=== PATIENT | female | born 1930 | race Caucasian/White ===

== ENCOUNTER 2017-11-20 13:45 | Inpatient (IN) | payer MEDICARE ==
--- NOTE | 2017-11-20 14:32 | EDM.PDOC ---
ED HPI GENERAL MEDICAL PROBLEM - General Chief Complaint: Trauma Stated Complaint: Fall Time Seen by Provider: 11/20/17 14:22 Source of Information: Reports: Patient, EMS, EMS Notes Reviewed, Other ( Neighbor) History Limitations: Reports: No Limitations - History of Present Illness INITIAL COMMENTS - FREE TEXT/NARRATIVE: Patient is 87-year-old female who presents to the emergency department via EMS. Patient was found on floor of home by a neighbor who was contacted by patient' s son because they have not been able to contact pt in several days. Neighbor states that when she entered the apartment that the patient was lying on the bathroom floor. She noticed that the patient's pill bottle was on the counter and Friday through Friday pills were not taken. Neighbor contacted 911. Patient states that she accidentally tripped and fell on Friday. She has pain in her right elbow and left hip. Patient also said she struck the back of head and has some neck discomfort. Patient remained on floor after the fall and did not eat or drink during this period. Scenario questioned by EMS because patient was found on the floor and did not have a bowel movement nor did she urinate herself. At this time, patient denies chest pain, shortness of breath, dizziness, blurry vision, headache, abdominal pain, nausea or vomiting. Onset: Unknown/Unsure Onset Date: 11/17/17 Duration: Day(s): Location: Reports: Head, Neck, Upper Extremity, Right, Lower Extremity, Left Quality: Reports: Ache Severity: Mild Improves with: Reports: None Worsens with: Reports: Movement Context: Reports: Trauma Associated Symptoms: Reports: No Other Symptoms - Related Data Allergies Allergy/AdvReac Type Severity Reaction Status Date / Time aspirin Allergy Cannot Verified 11/20/17 14:28 Remember Penicillins Allergy Cannot Verified 11/20/17 14:28 Remember salicylates Allergy Cannot Verified 11/20/17 14:28 Remember Home Meds: Home Meds Ezetimibe 10 mg PO BEDTIME 11/20/17 [History] FLUoxetine HCl [Fluoxetine] 20 mg PO DAILY 11/20/17 [History] OLANZapine [Olanzapine] 5 mg PO DAILY 11/20/17 [History] QUEtiapine Fumarate [Quetiapine Fumarate] 200 mg PO BEDTIME 11/20/17 [History] Simvastatin [Zocor] 40 mg PO BEDTIME 11/20/17 [History] Valsartan 320 mg PO DAILY 11/20/17 [History] Review of Systems - Review of Systems Review Of Systems: ROS reveals no pertinent complaints other than HPI. Constitutional: Reports: Weakness Eyes: Reports: No Symptoms Ears: Reports: No Symptoms Nose: Reports: No Symptoms Mouth/Throat: Reports: No Symptoms Respiratory: Reports: No Symptoms Cardiovascular: Reports: No Symptoms GI/Abdominal: Reports: No Symptoms Genitourinary: Reports: No Symptoms Musculoskeletal: Reports: Neck Pain, Arm Pain, Leg Pain, Muscle Stiffness Skin: Reports: Bruising Neurological: Reports: Confusion Psychiatric: Reports: No Symptoms ED EXAM, GENERAL - Physical Exam Exam: See Below Exam Limited By: No Limitations General Appearance: Alert, No Apparent Distress, Lethargic Eye Exam: Bilateral Eye: Normal Inspection Nose: Normal Inspection, No Blood Throat/Mouth: Normal Inspection, Normal Oropharynx, No Airway Compromise Head: Atraumatic, Normocephalic Neck: Tender Lateral Respiratory/Chest: No Respiratory Distress, Lungs Clear, Normal Breath Sounds, No Accessory Muscle Use, Chest Non-Tender Cardiovascular: Regular Rate, Rhythm, No Murmur GI/Abdominal: Normal Bowel Sounds, Soft, Non-Tender, No Organomegaly, No Distention, No Abnormal Bruit, No Mass, Pelvis Stable Back Exam: Normal Inspection. No: CVA Tenderness (L), CVA Tenderness (R) Extremities: Arm Pain (Right posterior elbow), Leg Pain (Left hip) Neurological: Alert, Slow to Respond Psychiatric: Normal Affect, Normal Mood Skin Exam: Warm, Dry, Intact, No Rash, Ecchymosis Course - Orders/Labs/Meds Orders: Active Orders 24 hr Category Date Time Status Cervical Spine Comp wo Cont [MR] Stat Exams 11/20/17 14:02 Ordered Elbow Min 3V Lt [CR] Stat Exams 11/20/17 14:22 Ordered Head wo Cont [CT] Stat Exams 11/20/17 14:02 Ordered Hip Min 2V or 3V w Pelvis Lt [CR] Stat Exams 11/20/17 14:02 Ordered CBC WITH AUTO DIFF [HEME] Stat Lab 11/20/17 14:02 Ordered COMPREHENSIVE METABOLIC PN,CMP [CHEM] Stat Lab 11/20/17 14:02 Ordered CREATINE KINASE,CK [CHEM] Stat Lab 11/20/17 14:02 Ordered UA W/MICROSCOPIC [URIN] Stat Lab 11/20/17 14:02 Ordered - Radiology Interpretation Free Text/Narrative:: CT without contrast of head and cervical spine are negative for acute bleed, fracture or dislocation. Plain films of pelvis, hips, and right elbow negative for fracture or dislocation. - Re-Assessments/Exams Free Text/Narrative Re-Assessment/Exam: 11/20/17 16:24 Patient is afebrile, nontoxic appearing, vital signs stable. Patient isn't complaining of any discomfort. All x-rays and CTs were negative. Patient hydrated with 2 L of normal saline while in the emergency department. Patient will be continued on 125 mL an hour of normal saline for 1 more liter. Patient will be admitted inpatient to [facility] and followed. Patient will be reevaluated for hydration status, electrolyte balance, and renal function. 11/20/17 16:27 Departure - Departure Time of Disposition: 16:27 Disposition: Admitted As Inpatient 67 Condition: Fair Clinical Impression: Non-traumatic rhabdomyolysis, Dehydration, Multiple contusions - Discharge Information Referrals: PCP,None [Primary Care Provider] - Forms: ED Department Discharge - My Orders Last 24 Hours: My Active Orders 11/20/17 14:02 Cervical Spine Comp wo Cont [MR] Stat Head wo Cont [CT] Stat Hip Min 2V or 3V w Pelvis Lt [CR] Stat CBC WITH AUTO DIFF [HEME] Stat COMPREHENSIVE METABOLIC PN,CMP [CHEM] Stat CREATINE KINASE,CK [CHEM] Stat UA W/MICROSCOPIC [URIN] Stat 11/20/17 14:22 Elbow Min 3V Lt [CR] Stat - Assessment/Plan Admission H&P: Please use this note as an admission H&P Last 24 Hours: My Active Orders 11/20/17 14:02 Cervical Spine Comp wo Cont [MR] Stat Head wo Cont [CT] Stat Hip Min 2V or 3V w Pelvis Lt [CR] Stat CBC WITH AUTO DIFF [HEME] Stat COMPREHENSIVE METABOLIC PN,CMP [CHEM] Stat CREATINE KINASE,CK [CHEM] Stat UA W/MICROSCOPIC [URIN] Stat 11/20/17 14:22 Elbow Min 3V Lt [CR] Stat Assessment:: Rhabdomyolysis Plan: Admit inpatient
[2017-11-20 14:58] LABS: ANION GAP 20.7 mmol/L (5-15)
[2017-11-20] MEDS ORDERED: Sodium Chloride 0.9% 1,000 ML IV ONE (15:19)
[2017-11-20] MEDS ORDERED: Ondansetron 4 MG Tab.DIS PO PRN (16:07)
[2017-11-20] MEDS ORDERED: Acetaminophen 325 MG Tab PO PRN (16:07)
[2017-11-20] MEDS ORDERED: VALSARTAN 320 MG PO SCH (16:30)
[2017-11-20] MEDS: Sodium Chloride 0.9% 1,000 ML IV SCH (16:55)
[2017-11-20] MEDS: Ezetimibe 10 MG Tab PO SCH (21:03)
[2017-11-20] MEDS: Simvastatin 20 MG Tab PO SCH (21:03)
[2017-11-20] MEDS: QUEtiapine 100 MG Tab PO SCH (21:03)
[2017-11-21] MEDS: Sodium Chloride 0.9% 1,000 ML IV SCH ×3 (00:59→22:39)
[2017-11-21] MEDS: OLANZapine 5 MG Tab PO SCH (08:35)
[2017-11-21] MEDS: FLUoxetine 10 MG Cap PO SCH (08:35)
[2017-11-21 08:50] LABS: ANION GAP 14.7 mmol/L (5-15)
[2017-11-21] MEDS ORDERED: Sodium Chloride 0.9% 1,000 ML IV ONE ×3 (09:30→15:45)
--- NOTE | 2017-11-21 15:56 | PCM.PN ---
- General Info Date of Service: 11/21/17 Admission Dx/Problem (Free Text): Patient is 87-year-old female who presented to the emergency department yesterday after being found on the floor of her home. Patient had stated that she was on the floor incapacitated for 3 days. Patient was found to be in rhabdomyolysis with a CK of 4900. Other lab work was within normal limits including potassium and renal function. Patient was given 2 L of normal saline while in emergency department. Patient was admitted for rehydration and monitored for improvement. Functional Status: Reports: Pain Controlled - Review of Systems General: Reports: Weakness HEENT: Reports: No Symptoms Pulmonary: Reports: No Symptoms. Denies: Shortness of Breath Cardiovascular: Reports: No Symptoms Gastrointestinal: Reports: No Symptoms Genitourinary: Reports: No Symptoms Musculoskeletal: Reports: No Symptoms Skin: Reports: No Symptoms Neurological: Reports: No Symptoms Psychiatric: Reports: No Symptoms - Patient Data Vitals - Most Recent: Last Vital Signs Temp 99.6 F 11/21/17 15:00 Pulse 95 11/21/17 15:00 Resp 28 H 11/21/17 15:00 BP 105/54 L 11/21/17 15:00 Pulse Ox 96 11/21/17 11:00 Weight - Most Recent: 162 lb 6.4 oz I&O - Last 24 Hours: Intake & Output 11/21/17 11/21/17 11/21/17 06:59 14:59 22:59 Intake Total 1184 3189 Output Total 375 Balance 1184 2814 Lab Results Last 24 Hours: Laboratory Results - last 24 hr 11/20/17 11/20/17 11/21/17 Range/Units 15:35 20:05 07:10 WBC 14.2 H (5.0-10.0) 10^3/uL RBC 4.53 (3.80-5.50) 10^6/uL Hgb 13.4 D (12.0-16.0) g/dL Hct 40.2 (37.0-47.0) % MCV 88.8 (82.0-92.0) fL MCH 29.5 (27.0-31.0) pg MCHC 33.2 (32.0-36.0) g/dL RDW 12.9 (11.5-14.5) % Plt Count 223 (150-300) 10^3/uL MPV 8.4 (7.4-10.4) fL Neut % (Auto) 84.0 H (50.0-70.0) % Lymph % (Auto) 7.6 L (20.0-40.0) % [place] % (Auto) 7.9 (2.0-8.0) % Eos % (Auto) 0.3 L (1.0-3.0) % Baso % (Auto) 0.2 (0.0-1.0) % Neut # (Auto) 12.0 H (2.5-7.0) 10^3/uL Lymph # (Auto) 1.1 (1.0-4.0) 10^3/uL [place] # (Auto) 1.1 H (0.1-0.8) 10^3/uL Eos # (Auto) 0.0 L (0.1-0.3) 10^3/uL Baso # (Auto) 0.0 (0.0-0.1) 10^3/uL Sodium (136-145) mmol/L Potassium (3.3-5.3) mmol/L Chloride (98-115) mmol/L Carbon Dioxide (21.0-32.0) mmol/L Anion Gap (5-15) mmol/L BUN (6-25) mg/dL Creatinine (0.51-1.17) mg/dL Est Cr Clr Drug Dosing mL/min Estimated GFR (MDRD) mL/min Glucose (70-110) mg/dL Calcium (8.7-10.3) mg/dL Magnesium (1.8-2.4) mg/dL Total Bilirubin (0.2-1.0) mg/dL AST (15-37) U/L ALT (12-78) U/L Alkaline Phosphatase (46-116) IU/L Creatine Kinase 5045 H* (26-276) U/L Total Protein (6.4-8.2) g/dL Albumin (3.00-4.80) g/dL Specimen Type Urinvoid Urine RBC 20-30 H /HPF Urine WBC 0-5 /HPF Ur Epithelial Cells Few /LPF Amorphous Sediment Few (0/HPF) /HPF Urine Bacteria Few (NONE TO FEW) /HPF Hyaline Casts Rare H (NEGATIVE) /LPF 11/21/17 Range/Units 07:10 WBC (5.0-10.0) 10^3/uL RBC (3.80-5.50) 10^6/uL Hgb (12.0-16.0) g/dL Hct (37.0-47.0) % MCV (82.0-92.0) fL MCH (27.0-31.0) pg MCHC (32.0-36.0) g/dL RDW (11.5-14.5) % Plt Count (150-300) 10^3/uL MPV (7.4-10.4) fL Neut % (Auto) (50.0-70.0) % Lymph % (Auto) (20.0-40.0) % [place] % (Auto) (2.0-8.0) % Eos % (Auto) (1.0-3.0) % Baso % (Auto) (0.0-1.0) % Neut # (Auto) (2.5-7.0) 10^3/uL Lymph # (Auto) (1.0-4.0) 10^3/uL [place] # (Auto) (0.1-0.8) 10^3/uL Eos # (Auto) (0.1-0.3) 10^3/uL Baso # (Auto) (0.0-0.1) 10^3/uL Sodium 138 (136-145) mmol/L Potassium 4.3 (3.3-5.3) mmol/L Chloride 106 (98-115) mmol/L Carbon Dioxide 21.6 (21.0-32.0) mmol/L Anion Gap 14.7 (5-15) mmol/L BUN 34 H (6-25) mg/dL Creatinine 1.01 (0.51-1.17) mg/dL Est Cr Clr Drug Dosing 37.43 mL/min Estimated GFR (MDRD) 52 mL/min Glucose 135 H (70-110) mg/dL Calcium 7.7 L D (8.7-10.3) mg/dL Magnesium 1.8 (1.8-2.4) mg/dL Total Bilirubin 0.8 (0.2-1.0) mg/dL AST 151 H (15-37) U/L ALT 69 (12-78) U/L Alkaline Phosphatase 52 (46-116) IU/L Creatine Kinase 4230 H* (26-276) U/L Total Protein 5.7 L (6.4-8.2) g/dL Albumin 2.48 L (3.00-4.80) g/dL Specimen Type Urine RBC /HPF Urine WBC /HPF Ur Epithelial Cells /LPF Amorphous Sediment (0/HPF) /HPF Urine Bacteria (NONE TO FEW) /HPF Hyaline Casts (NEGATIVE) /LPF Med Orders - Current: Current Medications Acetaminophen (Tylenol) 650 mg PO Q4H PRN PRN Reason: Pain (Mild 1-3)/fever Ezetimibe (Zetia) 10 mg PO BEDTIME [facility] Last Admin: 11/20/17 21:03 Dose: 10 mg Fluoxetine HCl (Prozac) 20 mg PO DAILY [facility] Last Admin: 11/21/17 08:35 Dose: 20 mg Sodium Chloride (Normal Saline) 1,000 mls @ 125 mls/hr IV ASDIRECTED [facility] Last Admin: 11/21/17 11:32 Dose: 125 mls/hr Sodium Chloride (Normal Saline) 1,000 mls @ 999 mls/hr IV .BOLUS ONE Stop: 11/21/17 15:54 Olanzapine (Zyprexa) 5 mg PO DAILY [facility] Last Admin: 11/21/17 08:35 Dose: 5 mg Ondansetron HCl (Zofran Odt) 4 mg PO Q6H PRN PRN Reason: nausea, able to take PO Quetiapine Fumarate (Seroquel) 200 mg PO BEDTIME [facility] Last Admin: 11/20/17 21:03 Dose: 200 mg Simvastatin (Zocor) 40 mg PO BEDTIME [facility] Last Admin: 11/20/17 21:03 Dose: 40 mg Valsartan (Diovan) 320 mg PO DAILY [facility] Last Admin: 11/21/17 08:38 Dose: 320 mg Discontinued Medications Sodium Chloride (Normal Saline) 1,000 mls @ 999 mls/hr IV .BOLUS ONE Stop: 11/20/17 16:19 Last Admin: 11/20/17 15:43 Dose: 999 mls/hr Sodium Chloride (Normal Saline) 1,000 mls @ 999 mls/hr IV .BOLUS ONE Stop: 11/21/17 10:30 Last Admin: 11/21/17 09:31 Dose: 999 mls/hr Sodium Chloride (Normal Saline) 1,000 mls @ 999 mls/hr IV .BOLUS ONE Stop: 11/21/17 11:30 Last Admin: 11/21/17 10:25 Dose: 999 mls/hr Non-Formulary Medication (Valsartan [Valsartan]) 320 mg PO DAILY [facility] Last Admin: 11/20/17 17:41 Dose: Not Given - Exam General: Alert, Oriented HEENT: Pupils Equal, Pupils Reactive Neck: Supple Lungs: Clear to Auscultation, Normal Respiratory Effort Cardiovascular: Regular Rate, Regular Rhythm GI/Abdominal Exam: Normal Bowel Sounds, Soft, Non-Tender, No Organomegaly, No Distention, No Abnormal Bruit, No Mass Back Exam: Normal Inspection. No: CVA Tenderness (L), CVA Tenderness (R) Extremities: Normal Inspection, No Pedal Edema Skin: Warm, Dry, Intact Neurological: No New Focal Deficit Psy/Mental Status: Alert, Normal Affect, Normal Mood - Problem List Review Problem List Initiated/Reviewed/Updated: Yes - My Orders Last 24 Hours: My Active Orders 11/20/17 15:35 UA W/MICROSCOPIC [URIN] Stat 11/20/17 16:07 Patient Status [ADT] Routine Oxygen Therapy [RC] PRN Up to Chair [RC] ASDIRECTED Vital Signs [RC] 0300,0700,1100,1500,1900,2300 Acetaminophen [Tylenol] 650 mg PO Q4H PRN Ondansetron [Zofran ODT] 4 mg PO Q6H PRN Resuscitation Status Routine 11/20/17 16:08 Pulse Oximetry [RC] PRN 11/20/17 16:09 Intake and Output [RC] 1400,2200,0600 11/20/17 16:15 Sodium Chloride 0.9% [Normal Saline] 1,000 ml IV ASDIRECTED 11/20/17 17:30 Valsartan [Diovan] 320 mg PO DAILY 11/20/17 21:00 Ezetimibe [Zetia] 10 mg PO BEDTIME QUEtiapine [SEROquel] 200 mg PO BEDTIME Simvastatin [Zocor] 40 mg PO BEDTIME 11/20/17 Dinner Regular Diet [DIET] 11/21/17 09:00 FLUoxetine [PROzac] 20 mg PO DAILY OLANZapine [ZyPREXA] 5 mg PO DAILY 11/21/17 10:50 Urinary Catheter Assessment [RC] ASDIRECTED 11/21/17 11:00 Roland Catheter Insertion [Insert Urinary Catheter] [OM.PC] Q24H 11/21/17 14:54 Sodium Chloride 0.9% [Normal Saline] 1,000 ml IV .BOLUS 11/21/17 15:47 UA W/MICROSCOPIC [URIN] Routine 11/21/17 19:00 BASIC METABOLIC PANEL,BMP [CHEM] Routine CBC WITH AUTO DIFF [HEME] Routine CREATINE KINASE,CK [CHEM] Routine - Assessment Assessment:: Patient had several liters of normal saline however urinary output was minimal. Roland catheter was inserted and output will be more closely monitored. I/O being recorded. Repeat CK 4 hours post ER was 5000. CK this a.m. was 4200. Hydration will continue and Lab work will be repeated at 1900 today. Bilateral breath sounds are clear with no sign of CHF, oxygen saturation 96% on room air, patient states she feels better and denies any chest pain, shortness of breath, or muscle cramping. - Plan Plan:: Will continue hydration and monitor output through Roland. Blood work to evaluate progression. Slow resolve.
[2017-11-21 19:33] LABS: ANION GAP 13.6 mmol/L (5-15); CHLORIDE,CL 107 mmol/L (98-115); SODIUM,NA 135 mmol/L (136-145)
[2017-11-21] MEDS ORDERED: Sodium Chloride 0.9% 2,000 ML IV SCH (20:05)
[2017-11-21] MEDS ORDERED: cefTRIAXone 1 GM Vial IVPUSH ONE (21:09)
[2017-11-21] MEDS: Ezetimibe 10 MG Tab PO SCH (21:12)
[2017-11-21] MEDS: QUEtiapine 100 MG Tab PO SCH (21:12)
[2017-11-21] MEDS: Simvastatin 20 MG Tab PO SCH (21:12)
[2017-11-22] MEDS: Sodium Chloride 0.9% 1,000 ML IV SCH ×3 (03:48→14:25)
[2017-11-22] MEDS: OLANZapine 5 MG Tab PO SCH (08:10)
[2017-11-22] MEDS: FLUoxetine 10 MG Cap PO SCH (08:10)
[2017-11-22] MEDS ORDERED: Furosemide 40 MG/4 ML VIAL IVPUSH ONE ×2 (11:19→18:00)
[2017-11-22 11:20] LABS: ANION GAP 11.9 mmol/L (5-15); CHLORIDE,CL 112 mmol/L (98-115); SODIUM,NA 137 mmol/L (136-145)
[2017-11-22] MEDS: Calcium Gluconate 10% 1 GM/10 ML SDV IVPUSH SCH ×2 (11:54→18:05)
--- NOTE | 2017-11-22 12:56 | PCM.PN ---
- General Info Date of Service: 11/22/17 Admission Dx/Problem (Free Text): Patient is 87-year-old female who presented to the emergency department yesterday after being found on the floor of her home. Patient had stated that she was on the floor incapacitated for 3 days. Patient was found to be in rhabdomyolysis with a CK of 4900. Other lab work was within normal limits including potassium and renal function. Patient was given 2 L of normal saline while in emergency department. Patient was admitted for rehydration and monitored for improvement. Subjective Update: Patient resting comfortably, in no distress Functional Status: Reports: Pain Controlled - Review of Systems General: Reports: No Symptoms HEENT: Reports: No Symptoms Pulmonary: Reports: No Symptoms. Denies: Shortness of Breath, Pleuritic Chest Pain, Wheezing Cardiovascular: Reports: No Symptoms. Denies: Chest Pain, Palpitations Gastrointestinal: Reports: No Symptoms. Denies: Abdominal Pain, Diarrhea, Nausea, Vomiting Genitourinary: Reports: No Symptoms, Dysuria Musculoskeletal: Reports: No Symptoms, Other (. No muscle cramping) Skin: Reports: No Symptoms Neurological: Reports: No Symptoms. Denies: Confusion, Dizziness, Headache, Numbness, Paresthesia Psychiatric: Reports: No Symptoms. Denies: Confusion - Patient Data Vitals - Most Recent: Last Vital Signs Temp 97.2 F 11/22/17 11:00 Pulse 83 11/22/17 11:00 Resp 16 11/22/17 11:00 BP 117/46 L 11/22/17 11:00 Pulse Ox 97 11/22/17 11:00 Weight - Most Recent: 162 lb 6.4 oz I&O - Last 24 Hours: Intake & Output 11/21/17 11/22/17 11/22/17 22:59 06:59 14:59 Intake Total 3982 1535 Output Total 360 300 Balance 3622 1235 Lab Results Last 24 Hours: Laboratory Results - last 24 hr 11/21/17 11/21/17 11/21/17 Range/Units 16:45 19:00 19:00 WBC 12.6 H (5.0-10.0) 10^3/uL RBC 4.41 (3.80-5.50) 10^6/uL Hgb 12.9 (12.0-16.0) g/dL Hct 39.5 (37.0-47.0) % MCV 89.5 (82.0-92.0) fL MCH 29.3 (27.0-31.0) pg MCHC 32.7 (32.0-36.0) g/dL RDW 12.9 (11.5-14.5) % Plt Count 213 (150-300) 10^3/uL MPV 8.0 (7.4-10.4) fL Neut % (Auto) 83.7 H (50.0-70.0) % Lymph % (Auto) 7.8 L (20.0-40.0) % [place] % (Auto) 7.5 (2.0-8.0) % Eos % (Auto) 0.5 L (1.0-3.0) % Baso % (Auto) 0.5 (0.0-1.0) % Neut # (Auto) 10.5 H (2.5-7.0) 10^3/uL Lymph # (Auto) 1.0 (1.0-4.0) 10^3/uL [place] # (Auto) 0.9 H (0.1-0.8) 10^3/uL Eos # (Auto) 0.1 (0.1-0.3) 10^3/uL Baso # (Auto) 0.1 (0.0-0.1) 10^3/uL Sodium 135 L (136-145) mmol/L Potassium 3.9 (3.3-5.3) mmol/L Chloride 107 (98-115) mmol/L Carbon Dioxide 18.3 L (21.0-32.0) mmol/L Anion Gap 13.6 (5-15) mmol/L BUN 28 H (6-25) mg/dL Creatinine 0.81 (0.51-1.17) mg/dL Est Cr Clr Drug Dosing 46.67 mL/min Estimated GFR (MDRD) > 60 mL/min Glucose 191 H (70-110) mg/dL Calcium 7.0 L (8.7-10.3) mg/dL Magnesium (1.8-2.4) mg/dL Creatine Kinase 4510 H* (26-276) U/L B-Natriuretic Peptide (0-100) pg/mL Specimen Type Urinfol Urine Color Yellow (YELLOW) Urine Appearance Slightly cloudy H (CLEAR) Urine pH 5.5 (5.0-9.0) Ur Specific [place] 1.020 (1.005-1.030) Urine Protein 30 H (NEGATIVE) mg/dL Urine Glucose (UA) Negative (NEGATIVE) mg/dL Urine Ketones Negative (NEGATIVE) mg/dL Urine Occult Blood Moderate H (NEGATIVE) Urine Nitrite Negative (NEGATIVE) Urine Bilirubin Negative (NEGATIVE) Urine Urobilinogen 0.2 (0.2-1.0) E.U./dL Ur Leukocyte Esterase Negative (NEGATIVE) Urine RBC 5-10 H /HPF Urine WBC 20-30 H /HPF Ur Epithelial Cells Few /LPF Urine Bacteria Moderate H (NONE TO FEW) /HPF 11/22/17 11/22/17 11/22/17 Range/Units 07:10 07:10 07:10 WBC (5.0-10.0) 10^3/uL RBC (3.80-5.50) 10^6/uL Hgb (12.0-16.0) g/dL Hct (37.0-47.0) % MCV (82.0-92.0) fL MCH (27.0-31.0) pg MCHC (32.0-36.0) g/dL RDW (11.5-14.5) % Plt Count (150-300) 10^3/uL MPV (7.4-10.4) fL Neut % (Auto) (50.0-70.0) % Lymph % (Auto) (20.0-40.0) % [place] % (Auto) (2.0-8.0) % Eos % (Auto) (1.0-3.0) % Baso % (Auto) (0.0-1.0) % Neut # (Auto) (2.5-7.0) 10^3/uL Lymph # (Auto) (1.0-4.0) 10^3/uL [place] # (Auto) (0.1-0.8) 10^3/uL Eos # (Auto) (0.1-0.3) 10^3/uL Baso # (Auto) (0.0-0.1) 10^3/uL Sodium 137 (136-145) mmol/L Potassium 3.6 (3.3-5.3) mmol/L Chloride 112 (98-115) mmol/L Carbon Dioxide 16.7 L (21.0-32.0) mmol/L Anion Gap 11.9 (5-15) mmol/L BUN 19 (6-25) mg/dL Creatinine 0.65 (0.51-1.17) mg/dL Est Cr Clr Drug Dosing 58.16 mL/min Estimated GFR (MDRD) > 60 mL/min Glucose 114 H (70-110) mg/dL Calcium 6.4 L (8.7-10.3) mg/dL Magnesium 1.4 L (1.8-2.4) mg/dL Creatine Kinase 3471 H* (26-276) U/L B-Natriuretic Peptide 460 H (0-100) pg/mL Specimen Type Urine Color (YELLOW) Urine Appearance (CLEAR) Urine pH (5.0-9.0) Ur Specific [place] (1.005-1.030) Urine Protein (NEGATIVE) mg/dL Urine Glucose (UA) (NEGATIVE) mg/dL Urine Ketones (NEGATIVE) mg/dL Urine Occult Blood (NEGATIVE) Urine Nitrite (NEGATIVE) Urine Bilirubin (NEGATIVE) Urine Urobilinogen (0.2-1.0) E.U./dL Ur Leukocyte Esterase (NEGATIVE) Urine RBC /HPF Urine WBC /HPF Ur Epithelial Cells /LPF Urine Bacteria (NONE TO FEW) /HPF Med Orders - Current: Current Medications Acetaminophen (Tylenol) 650 mg PO Q4H PRN PRN Reason: Pain (Mild 1-3)/fever Calcium Gluconate (Calcium Gluconate) 1 gm IVPUSH Q6H [facility] Stop: 11/22/17 18:01 Last Admin: 11/22/17 11:54 Dose: 1 gm Ezetimibe (Zetia) 10 mg PO BEDTIME [facility] Last Admin: 11/21/17 21:12 Dose: 10 mg Fluoxetine HCl (Prozac) 20 mg PO DAILY [facility] Last Admin: 11/22/17 08:10 Dose: 20 mg Sodium Chloride (Normal Saline) 1,000 mls @ 200 mls/hr IV ASDIRECTED [facility] Last Admin: 11/22/17 09:26 Dose: 200 mls/hr Magnesium Chloride (Mag-64) 64 mg PO BID [facility] Olanzapine (Zyprexa) 5 mg PO DAILY [facility] Last Admin: 11/22/17 08:10 Dose: 5 mg Ondansetron HCl (Zofran Odt) 4 mg PO Q6H PRN PRN Reason: nausea, able to take PO Quetiapine Fumarate (Seroquel) 200 mg PO BEDTIME [facility] Last Admin: 11/21/17 21:12 Dose: 200 mg Simvastatin (Zocor) 40 mg PO BEDTIME [facility] Last Admin: 11/21/17 21:12 Dose: 40 mg Valsartan (Diovan) 320 mg PO DAILY [facility] Last Admin: 11/22/17 08:09 Dose: 320 mg Discontinued Medications Ceftriaxone Sodium (Rocephin) 1 gm IVPUSH ONETIME [facility] Stop: 11/21/17 21:10 Last Admin: 11/21/17 21:49 Dose: 1 gm Furosemide (Lasix) 20 mg IVPUSH NOW ONE Stop: 11/22/17 11:20 Last Admin: 11/22/17 11:45 Dose: 20 mg Sodium Chloride (Normal Saline) 1,000 mls @ 999 mls/hr IV .BOLUS ONE Stop: 11/20/17 16:19 Last Admin: 11/20/17 15:43 Dose: 999 mls/hr Sodium Chloride (Normal Saline) 1,000 mls @ 125 mls/hr IV ASDIRECTED [facility] Last Admin: 11/21/17 11:32 Dose: 125 mls/hr Sodium Chloride (Normal Saline) 1,000 mls @ 999 mls/hr IV .BOLUS ONE Stop: 11/21/17 10:30 Last Admin: 11/21/17 09:31 Dose: 999 mls/hr Sodium Chloride (Normal Saline) 1,000 mls @ 999 mls/hr IV .BOLUS ONE Stop: 11/21/17 11:30 Last Admin: 11/21/17 10:25 Dose: 999 mls/hr Sodium Chloride (Normal Saline) 1,000 mls @ 999 mls/hr IV .BOLUS ONE Stop: 11/21/17 16:45 Last Admin: 11/21/17 15:30 Dose: 999 mls/hr Sodium Chloride (Normal Saline) 2,000 mls @ 999 mls/hr IV ASDIRECTED [facility] Stop: 11/21/17 22:06 Last Admin: 11/21/17 20:25 Dose: 999 mls/hr Non-Formulary Medication (Valsartan [Valsartan]) 320 mg PO DAILY [facility] Last Admin: 11/20/17 17:41 Dose: Not Given - Exam General: Alert, Oriented, Cooperative, No Acute Distress HEENT: Pupils Equal, Pupils Reactive, Mucous Membr. Moist/[place] Neck: Supple Lungs: Clear to Auscultation, Normal Respiratory Effort. No: Decreased Breath Sounds, Crackles, Rales, Wheezing Cardiovascular: Regular Rate, Regular Rhythm GI/Abdominal Exam: Normal Bowel Sounds, Soft, Non-Tender Back Exam: Normal Inspection. No: CVA Tenderness (L), CVA Tenderness (R) Extremities: Normal Inspection, No Pedal Edema, Normal Capillary Refill Skin: Warm, Dry, Intact Neurological: No New Focal Deficit Psy/Mental Status: Alert, Normal Affect, Normal Mood - Problem List Review Problem List Initiated/Reviewed/Updated: Yes - My Orders Last 24 Hours: My Active Orders 11/21/17 16:45 UA W/MICROSCOPIC [URIN] Routine 11/21/17 22:15 Sodium Chloride 0.9% [Normal Saline] 1,000 ml IV ASDIRECTED 11/22/17 01:14 CULTURE URINE [RM] Routine 11/22/17 12:00 Calcium Gluconate 1 gm IVPUSH Q6H 11/22/17 12:45 Magnesium Chloride [Mag-64] 64 mg PO BID - Assessment Assessment:: Patient has had several liters of normal saline however urinary output remains minimal. Lasix 20 mg was ordered. Intake +7000. Intake and output closely monitored. I/O being recorded. Repeat labs today shows CK 3471, down from 4200. Calcium 6.4, magnesium 1.4, CO2 16.7, renal function wnl. Will replace magnesium and calcium. Hydration will continue at 200ml/hr and Lab work will be repeated in am. Patient afebrile, bilateral breath sounds are clear with no sign of CHF, oxygen saturation 97% on room air, BP 117/46, HR 83. Patient states she feels better and denies any chest pain, shortness of breath, or muscle cramping. Her son is expected to visit today, and I will update him on her progress. - Plan Plan:: Will continue hydration and monitor output through [place]. Blood work to evaluate progression. Slow resolve.
[2017-11-22] MEDS: Magnesium Chloride 64 MG Tab.ER PO SCH ×2 (14:23→21:54)
[2017-11-22] MEDS ORDERED: Sodium Chloride 0.9% 1,000 ML IV SCH (14:36)
[2017-11-22] MEDS: Simvastatin 20 MG Tab PO SCH (21:53)
[2017-11-22] MEDS: Ezetimibe 10 MG Tab PO SCH (21:53)
[2017-11-22] MEDS: QUEtiapine 100 MG Tab PO SCH (21:53)
[2017-11-22] MEDS ORDERED: Albuterol 0.083% 2.5 MG/3 ML Neb Soln NEB ONE (23:29)
[2017-11-22] MEDS: Sodium Chloride 0.9% 1,000 ML IV ONE (23:43)
[2017-11-23 00:20] LABS: ANION GAP 15.3 mmol/L (5-15); CHLORIDE,CL 109 mmol/L (98-115); SODIUM,NA 137 mmol/L (136-145)
[2017-11-23] MEDS: Sodium Chloride 0.9% 1,000 ML IV ONE (00:36)
--- NOTE | 2017-11-23 01:11 | PCM.SN ---
- Free Text/Narrative Note: On 11/22/2017 at 2315. I was contacted by Enoch, the RN taking care of Mrs. Suarez and was told that she was found to be in atrial fibrillation. I requested an EKG, chest x-ray, BMP, BNP, troponin, and magnesium labs to be performed. Upon arriving at the hospital. I reviewed the EKG, chest x-ray and lab work. EKG showed atrial fibrillation with RVR, chest x-ray showed no acute congestion or heart failure and labs noted to have elevated troponin, However rhabdomyolysis is underlying. Initial blood pressure was 119/79, respiratory rate 24, heart rate 140s. Subsequent blood pressure was 88/58, and 1 L of normal saline was given bolus. Patient's blood pressure then was maintained 100 /60's. Due to the atrial fibrillation, hypotension, and underlining rhabdomyolysis, I contacted [facility] one call to discuss the patient with an foreign service officer. Discussed case with Dr. Collier and recommendation was to administer amiodarone 1 mg/m for 6 hours, then 0.5 mg/m for 18 hours. If patient has difficulty maintaining blood pressure or if nursing staff uncomfortable with plan then she said we can consider transfer. Patient will be followed through the night.
[2017-11-23] MEDS ORDERED: Sodium Chloride 0.9% 1,000 ML IV SCH (01:30)
--- NOTE | 2017-11-23 02:47 | PCM.SN ---
- Free Text/Narrative Note: After initiation of amiodarone 1 mg/m. Patient's heart rate was unaffected. However, her blood pressure decreased to 60s over 40s. Normal saline bolus was initiated and blood pressure was maintained at 90 over 60s. Discussed case with Dr. Collier and Dr. Lagunas, intensivists from [facility] and they will accept transfer of care. Patient will be transferred via EMS. Patient currently denies chest pain, shortness of breath, headache, nausea, vomiting. Patient accepts transfer.
== END 2017-11-23 03:10 | DRG 558 ==
LOC: KA.ED 13:45 → KA.MS 16:07 → UNDODISIN 11-23 03:10
PROVIDERS: ADMIT Physician Assistant Surgical; ATTEND Internal Medicine
DX: M62.82 Rhabdomyolysis (principal); I48.91 Unspecified atrial fibrillation; I95.9 Hypotension, unspecified; E86.0 Dehydration; Y92.019 Unspecified place in single-family (private) house as the place of occurrence of the external cause; T14.8XXA Other injury of unspecified body region, initial encounter; W18.30XA Fall on same level, unspecified, initial encounter; Y92.012 Bathroom of single-family (private) house as the place of occurrence of the external cause; Z88.0 Allergy status to penicillin; Z88.8 Allergy status to other drugs, medicaments and biological substances; Z79.899 Other long term (current) drug therapy
CPT/HCPCS: 36415; 51702; 70450; 71045; 72125; 73080-RT; 80048; 80053; 81001; 82550; 83735; 83880; 84484; 85025; 87086; 93005; 94640; 96360; 99285; A9270-GY; J0610; J0696; J1940; J7030; J7620-GY